=== PATIENT | female | born 1975 | race Caucasian/White ===

== ENCOUNTER → 2020-10-29 | Outpatient (CLI) | payer OTHER ==
[~2020-10-29] MED LIST: K-DUR TAB 20 M20 MEQ PO; OMNICEF 300 MG300 MG PO
== END ==
LOC: KOH-I 14:04
DX: R10.9 Unspecified abdominal pain (principal)
CPT/HCPCS: 74176

== ENCOUNTER → 2021-06-16 | Outpatient (CLI) | payer OTHER ==
[2021-06-16 12:29] LABS: BUN/CREATININE RATIO 14 (0-10)
== END ==
LOC: LAB 08:30
PROVIDERS: Nurse Practitioner
DX: E87.6 Hypokalemia (principal)
CPT/HCPCS: 36415; 80048